=== PATIENT | male | born 1950 | race Caucasian/White ===

== ENCOUNTER 2017-01-26 08:36 | Emergency (ER) | payer OTHER ==
[~2017-01-26] VITALS: Ht 167.6 cm; Wt 81.6 kg
[2017-01-26 08:36] VITALS: BP 161/84
[~2017-01-26 08:36] MED LIST: AMLO5TAB2 PO; ASPI-605 PO; ATEN25TA PO; ATOR10TA PO; METF500T4 PO
[2017-01-26] MEDS ORDERED: FLUORESCEIN SODIUM OPHTH 1 EA STRIP ONE (08:56)
[2017-01-26] MEDS ORDERED: TETRACAINE HCL/PF 0.5% UD 2 ML BOTTLE ONE (08:56)
[2017-01-26] MEDS ORDERED: FLUORESCEIN SODIUM OPHTH 1 EA STRIP OP ONE (09:00)
[2017-01-26] MEDS ORDERED: TETRACAINE HCL 0.5% OPHTALMIC 15 ML BOTTLE OP ONE (09:00)
== END 2017-01-26 09:24 | disposition home or self-care (01) ==
LOC: ER 08:40
DX: S05.01XA Injury of conjunctiva and corneal abrasion without foreign body, right eye, initial encounter (principal); X58.XXXA Exposure to other specified factors, initial encounter; Y93.89 Activity, other specified; Y92.89 Other specified places as the place of occurrence of the external cause; Y99.8 Other external cause status; I10 Essential (primary) hypertension; E78.00 Pure hypercholesterolemia, unspecified; F17.200 Nicotine dependence, unspecified, uncomplicated
CPT/HCPCS: A4606; Z7610

== ENCOUNTER 2018-10-18 01:37 | Inpatient (IN) | payer BC, OTHER ==
[~2018-10-18] VITALS: Ht 167.6 cm; Wt 79.4 kg
[~2018-10-18 01:37] MED LIST changes: -AMLO5TAB2 PO; +AMLO5TAB9 PO; +METF-440 PO; -METF500T4 PO
--- NOTE | 2018-10-18 01:40 | NUR ---
PT MELBA FROM HOME COMPLAINING OF RIGHT UPPPER QUADRANT PAIN X2 HOURS. PT STATES HE HAD MULTIPLE EPISODES OF VOMITTING PRIOR TO ARRIVAL. PT DENIES CHEST PAIN, SOB, DIARRHEA, DYSURIA. PT AAOX4. RESPIRATIONS EVEN AND UNLABORED. SKIN WARM AND INTACT. NO ACUTE DISTRESS NOTED AT THIS TIME. PT PLACED ON MONITOR, WILL CONTINUE TO MONITOR
[2018-10-18] MEDS ORDERED: ONDANSETRON HCL/PF 4 MG/2 ML VIAL ONE (01:42)
--- NOTE | 2018-10-18 01:42 | NUR ---
MD AT BEDSIDE FOR EVALUATION
--- NOTE | 2018-10-18 01:50 | NUR ---
IV INITIATED RIGHT AC 18G. LABS DRAWN FROM SITE. GENERATION MANAGER AT BEDSIDE FOR COLLECTION. IV INTACT AND PATENT. PT UNABLE TO PROVIDE URINE AT THIS TIME, AWARE
[2018-10-18 01:54] LABS: BASOPHILS % (AUTO) 0.3 % (0.0-2.0); EOSINOPHILS % (AUTO) 0.5 % (0.0-6.0); HEMATOCRIT 45 % (39-51); HEMOGLOBIN 14.8 g/dL (13.5-17.5); LYMPHOCYTES # (AUTO) 0.9 /CMM (0.8-4.8); MEAN CORPUSCULAR HGB CONC 33 g/dl (31.0-36.0); MEAN CORPUSCULAR VOLUME 90 fL (80-96); MONOCYTES # (AUTO) 0.6 /CMM (0.1-1.30); MONOCYTES % (AUTO) 4.2 % (2.0-12.0); NEUTROPHILS # (AUTO) 13.5 /CMM (1.8-8.9); PLATELET COUNT (AUTO) 198 /CMM (150-450); RED BLOOD CELL COUNT(AUTO) 5.04 MIL/uL (4.5-6.0); WHITE BLOOD COUNT (AUTO) 15.1 K/uL (4.3-11.0)
[2018-10-18] MEDS ORDERED: ONDANSETRON HCL/PF 4 MG/2 ML VIAL IVP ONE (02:00)
[2018-10-18] MEDS ORDERED: IV NS 0.9% 1,000 ML BAG IV ONE ×2 (02:00→06:00)
[2018-10-18 02:05] LABS: CALCIUM, SERUM 8.6 mg/dL (8.5-10.1); CARBON DIOXIDE 28 mmol/L (21-32); CHLORIDE 106 mmol/L (98-107); GLUCOSE 202 mg/dL (74-106); POTASSIUM 4.4 mmol/L (3.5-5.1); SODIUM SERUM 142 mmol/L (136-145); UREA NITROGEN, BLOOD 21 mg/dL (7-18)
[2018-10-18 02:18] LABS: ALANINE AMINOTRANSFERASE 83 U/L (12-78); ALBUMIN 3.5 g/dL (3.4-5.0); ALKALINE PHOSPHATASE 102 U/L (46-116); ASPARTATE AMINOTRANSFERASE 118 U/L (15-37); BILIRUBIN,DIRECT 0.2 mg/dL (0.0-0.2); BILIRUBIN,TOTAL 0.6 mg/dL (0.2-1.0); TOTAL PROTEIN, SERUM 6.8 g/dL (6.4-8.2)
[2018-10-18 02:29] LABS: LIPASE 17206 U/L (73-393)
--- NOTE | 2018-10-18 02:35 | NUR ---
URINE COLLECTED AND SENT TO LAB
[2018-10-18 02:49] LABS: APPEARANCE,URINE CLEAR (CLEAR); BILIRUBIN,URINE NEGATIVE (NEGATIVE); BLOOD, URINE NEGATIVE Ery/uL (NEGATIVE); COLOR,URINE YELLOW (YELLOW); KETONES,URINE NEGATIVE (NEGATIVE); LEUKOCYTE ESTERASE ,URINE NEGATIVE (NEGATIVE); NITRITE, URINE NEGATIVE (NEGATIVE); PH,URINE 5.5 (5.0-8.0); PROTEIN,URINE TRACE mg/dl (NEGATIVE); UGLUCOSE NEGATIVE (NEGATIVE)
[2018-10-18 03:16] LABS: BACTERIA,URINE None seen /HPF (None Seen); MUCUS,URINE Few /LPF (None Seen); RBC,URINE 0-2 /HPF (0-2); SQUAMOUS EPITHELIAL CELL,UR Few /HPF (None Seen)
--- NOTE | 2018-10-18 03:25 | NUR ---
PT BROUGHT BY RADIOLOGY FOR CT
--- NOTE | 2018-10-18 03:45 | NUR ---
PT RETURNED FROM CT
--- NOTE | 2018-10-18 07:11 | NUR ---
GAVE REPORT TO ENEDINA BUSTILLO FOR LONNY
--- NOTE | 2018-10-18 07:15 | NUR ---
PT ARRIVED VIA ADM. SEMAJ TO MS WITH DX PANCREATITIS . PT A/O X4 AT THE BEDSIDE. RAC #18 PATENT AND INTACT FLUSHING WELL. VS ARE STABLE , BREATHING UNLABORED AND EVEN ON ROOM AIR.PT REPORTED PAIN 12/07, REFUSED PAIN MEDICATION. SKIN CHECKED AND INTACT. BELONGINGS REVIEWED AND SIGHED. PT ORIENTED ON UNIT. WILL INFORM Addendum: 10/18/18 at 1905 by WILL JARRELL RN PT ARRIVED VIA WHEELCHAIR.
[2018-10-18] MEDS ORDERED: IV NS 0.9% 1,000 ML BAG IV PRN (07:30)
--- NOTE | 2018-10-18 07:38 | NUR ---
PT TRANSFERRED TO [facility] BED 324 VIA WHEELCHAIR
[2018-10-18 08:00] VITALS: BP 123/73
[2018-10-18 08:30] VITALS: BP 123/73
[2018-10-18] MEDS ORDERED: BENA5TAB5 PO (08:41)
[2018-10-18] MEDS ORDERED: ONDANSETRON HCL/PF 4 MG/2 ML VIAL IV PRN (10:00)
[2018-10-18] MEDS ORDERED: HYDROMORPHONE INJ 2 MG/ML DISP.SYRIN IV PRN (10:00)
--- NOTE | 2018-10-18 10:00 | NUR ---
RECEIVED TELEPHONE ORDER FROM DR CARPENTER : 10/01 NS WITH 10KCL 100ML/HR HYDROMORPHONE 1 MG IV Q3H PRN FOR SEVER PAIN ZOFRAN 4MG Q4 PRN NPO PROTONIX 4 MG IV DAILY CBS, CMP, LIPASE IN AM MED RECONCILIATION DONE
--- NOTE | 2018-10-18 10:00 | NUR ---
OBTAINED MRSA SWAB AND SENT TO LAB
[2018-10-18] MEDS: ASPIRIN EC 81 MG TABLET.DR PO SCH (10:10)
[2018-10-18] MEDS: PANTOPRAZOLE 40 MG VIAL IV SCH (10:11)
[2018-10-18] MEDS: BENAZEPRIL HCL 5 MG TABLET PO SCH (10:11)
[2018-10-18] MEDS: ATENOLOL 25 MG TABLET PO SCH (10:11)
[2018-10-18] MEDS: ACETAMINOPHEN 325 MG TABLET PO PRN ×2 (15:37→21:19)
--- NOTE | 2018-10-18 15:50 | NUR ---
PAGED DR CARPENTER PT HAS FEVER 103
[2018-10-18 16:00] VITALS: BP 118/60
[2018-10-18] MEDS ORDERED: ZOSYN IVPB 3.375 G in IV D5W 50ml IV ONE (16:00)
--- NOTE | 2018-10-18 16:10 | NUR ---
RECEIVED ORDER FOR ZOSYN AND TYLENOL.
--- NOTE | 2018-10-18 17:00 | NUR ---
FIRST DOSE OF ZOSYN GIVEN
[2018-10-18] MEDS: METFORMIN 500 MG TABLET PO SCH (17:42)
--- NOTE | 2018-10-18 19:00 | NUR ---
RN MS OPENING NOTES RECEIVED PATIENT AWAKE ALERT AND ORIENTED X 3, ABLE TO MAKE NEEDS KNOWN, RESPIRATIONS EVEN AND UNLABORED WITH EQUAL RISE AND FALL OF CHEST , DENIES ANY PAIN OR DISCOMFORT AT THIS TIME IV SITE TO RIGHT AC #18, LEFT HAND #22 AND RIGHT HAND #22 INTACT AND PATENT, NO REDNESS, NO INFILTRATION PRESENT IVF RUNNING ORDERED, ORIENTED TO STAFF AND CALL LIGHT, SAFETY PRECAUTIONS IN PLACE, LOW BED AND LOCKED , CALL LIGHT KEPT WITHIN REACH URINAL OFFERED AT BEDSIDE, FLUIDS OFFERED ALL NEEDS ATTENDED WILL CONTINUE TO MONITOR AND ENDORSE TO NEXT SHIFT, REMAINS COMFORTABLE AT THIS TIME. WILL CONTINUE TO ATTEND TO NEEDS.
--- NOTE | 2018-10-18 19:10 | NUR ---
NEW IV LINE INSERTED TO R HAND #22 FOR ANTIBIOTICS
--- NOTE | 2018-10-18 19:15 | NUR ---
CLOSING NOTES . PT A/O X4 , NO FEVER AT THIS TIME. NO COMPLAIN OF PAIN, ON ROOM AIR. FAMALY AT BEDSIDE. SAFETY PRECAUTIONS IN PLACE , CALL LIGHT WITHIN REACH.
[2018-10-18 20:00] VITALS: BP 94/59
[2018-10-18] MEDS: PIPERACILLIN /TAZOBACTAM 3.375 G in IV D5W 100 ML IV SCH (21:19)
--- NOTE | 2018-10-18 21:19 | NUR ---
RN MS NOTES PATIENT NOTED WITH ELEVATED TEMP OF 99.9 COOLING MEASURES PROVIDED AND TYLENOL GIVEN WILL CONTINUE TO MONITOR FOR EFFECTIVENESS.
[2018-10-18] MEDS ORDERED: PIPERACILLIN /TAZOBACTAM 3.375 G in IV D5W 50 ML IV SCH (22:00)
[2018-10-19] VITALS: BP 103/54
[2018-10-19] MEDS: PIPERACILLIN /TAZOBACTAM 3.375 G in IV D5W 100 ML IV SCH ×2 (05:21→15:29)
--- NOTE | 2018-10-19 06:50 | NUR ---
RN MS CLOSING NOTES PATIENT AWAKE ALERT AND ORIENTED X 3, ABLE TO MAKE NEEDS KNOWN, RESPIRATIONS EVEN AND UNLABORED WITH EQUAL RISE AND FALL OF CHEST , DENIES ANY PAIN OR DISCOMFORT AT THIS TIME IV SITE TO RIGHT AC #18, LEFT HAND #22 AND RIGHT HAND #22 INTACT AND PATENT, NO REDNESS, NO INFILTRATION PRESENT IVF RUNNING ORDERED, ZOSYN RUNNING ORDERED SAFETY PRECAUTIONS IN PLACE, LOW BED AND LOCKED , CALL LIGHT KEPT WITHIN REACH URINAL OFFERED AT BEDSIDE, PATIENT KEPT NPO AT MIDNIGHT FOR MRCP W/ OUT CONTRAST PROCEDURE, ALL NEEDS ATTENDED WILL CONTINUE TO MONITOR AND ENDORSE TO NEXT SHIFT, REMAINS COMFORTABLE AT THIS TIME. WILL CONTINUE TO ATTEND TO NEEDS. Addendum: 10/19/18 at 0655 by GILBERT JEAN-BAPTISTE RN REMAINS AFEBRILE AT THIS TIME
--- NOTE | 2018-10-19 07:15 | NUR ---
MS RN OPENING NOTES PT AWAKE ALERT AND ORIENTED X 3, ABLE TO MAKE NEEDS KNOWN, RESPIRATIONS EVEN AND UNLABORED , DENIES ANY PAIN OR DISCOMFORT AT THIS TIME IV SITE TO RIGHT AC #18, LEFT HAND #22 AND RIGHT HAND #22 INTACT AND PATENT, NO REDNESS, NO INFILTRATION PRESENT IVF RUNNING , SAFETY PRECAUTIONS IN PLACE, LOW BED AND LOCKED , CALL LIGHT KEPT WITHIN REACH URINAL OFFERED AT BEDSIDE, FLUIDS OFFERED ALL NEEDS ATTENDED WILL CONTINUE TO MONITOR.
[2018-10-19 07:32] LABS: BASOPHILS % (AUTO) 0.1 % (0.0-2.0); EOSINOPHILS % (AUTO) 0.1 % (0.0-6.0); HEMATOCRIT 38 % (39-51); HEMOGLOBIN 12.7 g/dL (13.5-17.5); LYMPHOCYTES # (AUTO) 0.4 /CMM (0.8-4.8); MEAN CORPUSCULAR HGB CONC 34 g/dl (31.0-36.0); MEAN CORPUSCULAR VOLUME 89 fL (80-96); MONOCYTES # (AUTO) 0.6 /CMM (0.1-1.30); MONOCYTES % (AUTO) 5.2 % (2.0-12.0); NEUTROPHILS # (AUTO) 11.2 /CMM (1.8-8.9); NEUTROPHILS % (AUTO) 91.6 % (43.0-81.0); PLATELET COUNT (AUTO) 129 /CMM (150-450); RED BLOOD CELL COUNT(AUTO) 4.24 MIL/uL (4.5-6.0); WHITE BLOOD COUNT (AUTO) 12.2 K/uL (4.3-11.0)
[2018-10-19 07:37] LABS: ALBUMIN 2.9 g/dL (3.4-5.0); BILIRUBIN,TOTAL 1.1 mg/dL (0.2-1.0); CALCIUM, SERUM 7.9 mg/dL (8.5-10.1); POTASSIUM 3.9 mmol/L (3.5-5.1); TOTAL PROTEIN, SERUM 6.1 g/dL (6.4-8.2)
[2018-10-19 07:53] LABS: FREE PSA 9.58 ng/mL (0.00-45); PROSTATE SPECIFIC ANTIGEN SCR 15.33 ng/mL (0.00-4.00)
[2018-10-19 08:00] VITALS: BP 111/68
[2018-10-19] MEDS: BENAZEPRIL HCL 5 MG TABLET PO SCH (09:00)
[2018-10-19 09:07] LABS: CHOLESTEROL 75 mg/dL (<200); HDL CHOLESTEROL 36 mg/dL (40-60); LDL 38 mg/dL (0-99); TRIGLYCERIDES 67 mg/dL (30-150)
[2018-10-19] MEDS: PANTOPRAZOLE 40 MG VIAL IV SCH (09:10)
[2018-10-19] MEDS: ASPIRIN EC 81 MG TABLET.DR PO SCH (09:10)
[2018-10-19 09:12] VITALS: BP 111/68
[2018-10-19] MEDS: METFORMIN 500 MG TABLET PO SCH (09:12)
[2018-10-19] MEDS: ATENOLOL 25 MG TABLET PO SCH (09:12)
[2018-10-19] MEDS ORDERED: AMOX-430 PO (11:19)
[2018-10-19] MEDS ORDERED: TAMS-12 PO (11:19)
--- NOTE | 2018-10-19 13:49 | NUR ---
PAGED DR. CARPENTER : MRI RESULTS POSTED
--- NOTE | 2018-10-19 14:15 | NUR ---
NEW STAT ORDER FROM DR CARPENTER ; CT SCAN ABD PELVIS W /WO CONTRAST.
--- NOTE | 2018-10-19 14:45 | NUR ---
PT PICKED UP FOR CT ABD PELVIS WITH CONTRAST
[2018-10-19] MEDS ORDERED: IV NS 0.9% 250 ML IV ONE (14:54)
[2018-10-19] MEDS ORDERED: CT SWABBABLE VALVE TRANS SET 1 EA INFUS.SET MC ONE (14:54)
[2018-10-19] MEDS ORDERED: IOHEXOL-300 100 ML VIAL IV ONE (14:54)
--- NOTE | 2018-10-19 17:00 | NUR ---
PT CLEARED BY , DISCHARGED TO HOME, MEDICALLY STABLE. PT AWAKE A/O X4 , BREATHING UNLABORED AND EVEN ON ROOM AIR, NO COMPLAIN OF PAIN , NO DISTRESS. EDUCATION AND D/C INSTRUCTIONS PROVIDED. VERBALIZED UNDERSTANDING. PT SIGHT ALL FORMS INCLUDING BELONGINGS LIST.NEW PRESCRIPTION PROVIDED. IV LINES REMOVED, ID BAND REMOVED. PT LEFT ACCOMPANIED BY VIA A PRIVET CAR.
== END 2018-10-19 17:20 | disposition home or self-care (01) | DRG 439 ==
LOC: ER 01:39 → MED 06:55
PROVIDERS: ADMIT Internal Medicine; ATTEND Internal Medicine
DX: K85.90 Acute pancreatitis without necrosis or infection, unspecified (principal); N39.0 Urinary tract infection, site not specified; I10 Essential (primary) hypertension; E11.9 Type 2 diabetes mellitus without complications; E78.5 Hyperlipidemia, unspecified; Z90.49 Acquired absence of other specified parts of digestive tract; N40.0 Benign prostatic hyperplasia without lower urinary tract symptoms; I25.10 Atherosclerotic heart disease of native coronary artery without angina pectoris; N21.0 Calculus in bladder; Z83.3 Family history of diabetes mellitus; Z82.49 Family history of ischemic heart disease and other diseases of the circulatory system; Z79.82 Long term (current) use of aspirin; K21.9 Gastro-esophageal reflux disease without esophagitis; E78.00 Pure hypercholesterolemia, unspecified
CPT/HCPCS: 36415; 74178; 74181-TC; 80048-TC; 80053-TC; 80061-TC; 80076-TC; 81000-TC; 83690-TC; 84153-TC; 84154-TC; 84484-TC; 85025-TC; 87081-TC; 87086-TC; C9113; G0378; J2405; J2543; J3480; J3490; J7030; J7050; J7060; Q9967

== ENCOUNTER 2022-09-04 10:30 | Emergency (ER) | payer OTHER ==
[~2022-09-04] VITALS: Ht 167.6 cm; Wt 72.6 kg
[~2022-09-04 10:30] MED LIST changes: -AMLO5TAB9 PO; +ASPI-1420 PO; -ASPI-605 PO; -ATEN25TA PO; -ATOR10TA PO; +ATOR40TA PO; +BENA5TAB5 PO; +CARB1TAB21 PO; +FINA5TAB4 PO; +LEVO500T90 PO; +METO25TA20 PO; +METR500T PO; +NATE120T6 PO; +TAMS-12 PO
--- NOTE | 2022-09-04 10:30 | NUR ---
BIB FOR NOTED BLOOD IN F/C BAG SINCE THIS MORNING. PT WAS DISCHARGED FROM THE HOSPITAL YESTERDAY. STATED THAT THE SAMANO WAS INSERTED AND TAKEN OUT AND REINSERTED DURING HIS HOSPITALIZATION AND SENT HOME WITH A LEG BAG. PT DENIES ANY PAIN.
[2022-09-04] MEDS ORDERED: LIDOCAINE 2% JEL UROJET 10 ML MM ONE ×2 (11:44→12:30)
--- NOTE | 2022-09-04 11:52 | NUR ---
SAMANO REMOVED, NEW 16FR SAMANO INSERTED, URINE OUTPUT OF 100CC CLEAR AND YELLOW.
--- NOTE | 2022-09-04 12:02 | NUR ---
URINE COLLECTED AND SENT
[2022-09-04 13:08] LABS: BILIRUBIN,URINE NEGATIVE (NEGATIVE); COLOR,URINE YELLOW (YELLOW); LEUKOCYTE ESTERASE ,URINE NEGATIVE (NEGATIVE); NITRITE, URINE NEGATIVE (NEGATIVE); PH,URINE 6.5 (5.0-8.0); PROTEIN,URINE 2+ mg/dl (NEGATIVE); UGLUCOSE NEGATIVE (NEGATIVE); UROBILINOGEN,URINE 0.2 EU/dL (0.2)
[2022-09-04 13:21] LABS: BACTERIA,URINE Few /HPF (None Seen); RBC,URINE 51-80 /HPF (0-2); SQUAMOUS EPITHELIAL CELL,UR Few /HPF (None Seen); WBC,URINE 0-2 /HPF (0-3)
--- NOTE | 2022-09-04 13:41 | NUR ---
SAMANO CATHETER CHANGED TO LEG BAG
[2022-09-04 13:44] VITALS: BP 134/72
--- NOTE | 2022-09-04 13:44 | NUR ---
Patient discharged to home in stable condition. Written and verbal after care instructions given. Patient verbalizes understanding of instruction.
== END 2022-09-04 13:45 | disposition home or self-care (01) ==
LOC: ER 10:32
DX: R31.9 Hematuria, unspecified (principal); I10 Essential (primary) hypertension; E11.9 Type 2 diabetes mellitus without complications; G20 Parkinson's disease; E78.00 Pure hypercholesterolemia, unspecified; Z90.49 Acquired absence of other specified parts of digestive tract; F17.200 Nicotine dependence, unspecified, uncomplicated; Z95.1 Presence of aortocoronary bypass graft; Z79.82 Long term (current) use of aspirin; Z79.84 Long term (current) use of oral hypoglycemic drugs
CPT/HCPCS: 99284; 51702; 81001; J3490

== ENCOUNTER 2022-09-04 18:01 | Emergency (ER) | payer OTHER ==
[~2022-09-04] VITALS: Ht 167.6 cm; Wt 72.6 kg
[2022-09-04 18:32] VITALS: BP 138/83
--- NOTE | 2022-09-04 18:50 | NUR ---
SAMANO CATH BAG CHANGED; URINE ABLE TO DRAIN, NO CLOTS NOTED.
--- NOTE | 2022-09-04 18:52 | NUR ---
Patient discharged to home in stable condition. Written and verbal after care instructions given. Patient verbalizes understanding of instruction.
== END 2022-09-04 18:55 | disposition home or self-care (01) ==
LOC: ER 18:10
DX: R33.9 Retention of urine, unspecified (principal); I10 Essential (primary) hypertension; E11.9 Type 2 diabetes mellitus without complications; E78.00 Pure hypercholesterolemia, unspecified; F17.200 Nicotine dependence, unspecified, uncomplicated; Z90.49 Acquired absence of other specified parts of digestive tract; Z79.899 Other long term (current) drug therapy